=== PATIENT | male | born 1960 | race Caucasian/White ===

== ENCOUNTER → 2024-05-21 | Outpatient (CLI) | payer MEDICARE, MEDICAID ==
[2024-05-21 11:29] LABS: BASO # 0.05 K/mm3 (0.02-0.10); EOS # 0.08 K/mm3 (0.04-0.40); EOS % 1.4 % (0.0-4.0); HEMATOCRIT 58.1 % (42.0-52.0); HEMOGLOBIN 19.4 g/dL (13.5-18.0); LYMPH# 1.87 K/mm3 (1.50-4.00); MEAN CELL VOLUME 95 fl (78-100); MEAN CORPUSCULAR HEMOGLOBIN 32 pg (27-31); MEAN CORPUSCULAR HGB CONC 33 g/dL (33-37); MONO # 0.56 K/mm3 (0.20-0.80); NEU # 3.09 K/mm3 (1.40-6.50); PLATELET COUNT 231 K/mm3 (130-400); RED CELL DISTRIBUTION WIDTH 13.5 % (11.5-14.5); WHITE BLOOD COUNT 5.7 K/mm3 (4.8-10.8)
[2024-05-21 11:52] LABS: ALBUMIN 4.1 g/dL (3.4-4.8)
[2024-05-21 11:53] LABS: CALCIUM 9.7 mg/dL (8.3-10.5)
[2024-05-21 11:54] LABS: TOTAL PROTEIN 6.6 g/dL (6.2-8.1)
[2024-05-21 11:56] LABS: TOTAL BILIRUBIN 1.1 mg/dL (0.2-1.2)
[2024-05-21 23:27] LABS: FOLATE (FOLIC ACID) 9.5 ng/mL (2.0-20.0)
[2024-05-25 05:38] LABS: VITAMIN B1 98.1 nmol/L (())
== END ==
LOC: LAB 11:12
PROVIDERS: Internal Medicine
DX: Z12.5 Encounter for screening for malignant neoplasm of prostate (principal); R20.2 Paresthesia of skin; D64.9 Anemia, unspecified; E78.2 Mixed hyperlipidemia

== ENCOUNTER → 2024-07-16 | Outpatient (CLI) | payer MEDICARE, MEDICAID | LOC: LAB 15:35 | DX: R73.03 Prediabetes (principal); K90.9 Intestinal malabsorption, unspecified ==

== ENCOUNTER → 2024-09-12 | Outpatient (CLI) | payer MEDICARE, MEDICAID | LOC: VAS 15:43 → RAD 16:30 | DX: R06.00 Dyspnea, unspecified (principal) ==